=== PATIENT | male | born 1990 | race Hispanic/Latino ===

== ENCOUNTER 2016-11-29 18:02 | Emergency (ER) | payer SELFPAY ==
[~2016-11-29] VITALS: Ht 172.7 cm; Wt 74.8 kg
[2016-11-29 21:03] VITALS: BP 135/81
== END 2016-11-29 21:04 | disposition home or self-care (01) ==
LOC: EME 18:02
DX: M19.90 Unspecified osteoarthritis, unspecified site (principal); M79.661 Pain in right lower leg; F17.200 Nicotine dependence, unspecified, uncomplicated
CPT/HCPCS: 99281; 99284